=== PATIENT | male | born 1970 | race Caucasian/White ===

== ENCOUNTER 2016-11-03 19:42 | Emergency (ER) | payer MEDICAID ==
[2016-11-03 20:24] LABS: APPEARANCE CLEAR (CLEAR); BILIRUBIN NEGATIVE (NEGATIVE); COLOR YELLOW (YELLOW); GLUCOSE NEGATIVE (NEGATIVE); KETONE NEGATIVE (NEGATIVE); LEUKOCYTE ESTERASE NEGATIVE (NEGATIVE); NITRITE NEGATIVE (NEGATIVE); PROTEIN NEGATIVE (NEGATIVE); UROBILINOGEN NORMAL (NORMAL)
== END 2016-11-03 22:43 | disposition home or self-care (01) ==
LOC: D.ER 19:42
PROVIDERS: Emergency Medicine
DX: Z98.890 Other specified postprocedural states (principal); I10 Essential (primary) hypertension; F20.9 Schizophrenia, unspecified; F32.9 Major depressive disorder, single episode, unspecified; F17.200 Nicotine dependence, unspecified, uncomplicated

== ENCOUNTER 2016-11-03 21:57 | Emergency (ER) | payer BC | END 2016-11-03 22:43 | disposition home or self-care (01) | LOC: D.ER 21:57 | DX: M25.561 Pain in right knee (principal) ==